=== PATIENT | male | born 1995 | race Caucasian/White ===

== ENCOUNTER 2022-09-14 16:20 | Emergency (ER) | payer OTHER ==
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
[2022-09-14] MEDS ORDERED: Rocephin 1000 MG INJ IM ONE (17:16)
[2022-09-14] MEDS ORDERED: TORAdol 30 mg Injection IM ONE (17:16)
[2022-09-14] MEDS ORDERED: Rocephin 1000 MG INJ ONE (17:20)
[2022-09-14] MEDS ORDERED: TORAdol 30 mg Injection ONE (17:20)
[2022-09-14] MEDS ORDERED: BACIGUENT PACKET ONE (17:24)
[2022-09-14 17:39] VITALS: BP 117/80; PULSE 90; O2SAT 100
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
== END 2022-09-14 17:35 | disposition home or self-care (01) ==
LOC: ED 16:20
DX: S61.411A Laceration without foreign body of right hand, initial encounter (principal); S69.91XA Unspecified injury of right wrist, hand and finger(s), initial encounter; L03.113 Cellulitis of right upper limb; W22.8XXA Striking against or struck by other objects, initial encounter; Z28.310 Unvaccinated for COVID-19
CPT/HCPCS: 73130; 96372; 99283; 99291; J0696; J1885; A9270-GY

== ENCOUNTER 2022-09-15 19:19 | Emergency (ER) | payer OTHER ==
[2022-09-15 19:35] VITALS: BP 165/98
[2022-09-15] MEDS ORDERED: Augmentin 875-125 Tablet PO ONE (20:04)
[2022-09-15] MEDS ORDERED: CLEOCIN 150 MG CAPSULE PO ONE (20:05)
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
[2022-09-15] MEDS ORDERED: Augmentin 875-125 Tablet ONE (20:23)
[2022-09-15] MEDS ORDERED: CLEOCIN 150 MG CAPSULE ONE (20:23)
[2022-09-15 20:40] VITALS: PULSE 98; O2SAT 100
== END 2022-09-15 20:40 | disposition home or self-care (01) ==
LOC: ED 19:19
DX: L03.113 Cellulitis of right upper limb (principal); Z28.310 Unvaccinated for COVID-19; Z79.899 Other long term (current) drug therapy
CPT/HCPCS: 99282; A9270-GY